=== PATIENT | male | born 1965 | race Caucasian/White ===

== ENCOUNTER 2017-10-31 17:09 | Emergency (ER) | payer SELFPAY ==
[2017-10-31] MEDS: ALPRAZOLAM 1 MG TAB PO (18:04)
== END 2017-10-31 18:54 | disposition home or self-care (01) ==
LOC: FTE 17:09
DX: F13.230 Sedative, hypnotic or anxiolytic dependence with withdrawal, uncomplicated (principal)
CPT/HCPCS: 99283